=== PATIENT | female | born 1975 | race Two or more races ===

== ENCOUNTER 2024-10-11 13:46 | Emergency (ER) | payer MEDICAID, SELFPAY ==
[2024-10-11 13:48] VITALS: BMI 23.1
[2024-10-11 14:22] VITALS: BP 124/85; PULSE 99; RESP 18; TEMP 36.4; O2SAT 100
--- NOTE | 2024-10-11 14:35 | EDRME_ITS ---
Rapid Medical Screening Exam [facility] Arrival date/time: 10/11/24 13:46 This is a 49-year-old female that comes in with complaints of weakness. Reports that she is currently on her menstrual cycle. Patient is on day 4 of bleeding. Patient states that she feels like her hemoglobin or iron is low. Patient denies any other symptoms. Patient reports a history of iron being low. Patient states that the last time she had her menstrual cycle she does not know if the tampon stayed in there.. She does not know if she remove the last tampon. Patient does not think she pulled it out or it fell out. Chief Complaint: Shortness of Breath/Dyspnea Time Seen by Provider: 10/11/24 14:12 Vital signs: Vital Signs Temperature 97.6 F 10/11/24 14:22 Pulse Rate 99 10/11/24 14:22 Respiratory Rate 18 10/11/24 14:22 Blood Pressure 124/85 H 10/11/24 14:22 Pulse Oximetry (%) 100 10/11/24 14:22 Oxygen Delivery Method Room Air 10/11/24 14:22
--- NOTE | 2024-10-11 14:37 | XR_ITS ---
Examination: PA lateral chest 2 views Technique: Upright PA lateral chest 2 views Exam date and time: October 11, 2024 1446 hrs. Indications: Weakness shortness of breath today Findings: Normal heart size No pneumonia or pulmonary edema The osseous structures are intact Impression: No active disease
[2024-10-11 15:03] LABS: Collection Type, Urine Voided
[2024-10-11 15:09] LABS: Basophils % (Auto) 1 % (0-2.5); Eosinophils # (Auto) 0.1 Thou/mm3 (0.0-0.5); Eosinophils % (Auto) 2 % (0-10); Hematocrit 33.3 % (36.0-46.0); Hemoglobin 9.4 g/dL (12.0-16.0); Immature Granulocytes % (Auto) 1 % (0-0); Immature Granulocytes Auto 0.02 Thou/mm3 (0.00-0.00); Lymphocytes # (Auto) 1.6 Thou/mm3 (1.0-4.8); Lymphocytes % (Auto) 39 % (10-50); Mean Corpuscular HGB Conc 28.2 g/dl (31.0-37.0); Mean Corpuscular Volume 64 fL (80-100); Monocytes # (Auto) 0.5 Thou/mm3 (0.0-0.8); Monocytes % (Auto) 12 % (0-12); Neutrophils # (Auto) 1.9 Thou/mm3 (1.8-7.7); Neutrophils % (Auto) 46 % (37-80); Nucleated Red Blood Cell % 0 /100 WBC (0); Platelet Count 466 Thou/mm3 (140-440); RDW Standard Deviation 43.8 fL (36.4-46.3); Red Blood Count 5.22 Miln/mm3 (4.00-5.20); White Blood Count 4.1 Thou/mm3 (3.6-11.0)
[2024-10-11 15:17] LABS: Bacteria,Urine 1+; Bilirubin,Urine Negative (Negative); Blood,Urine 2+ (Negative); Clarity,Urine Turbid (Clear/Hazy); Color,Urine Yellow (Lt Yel-Yel); Culture Indicated,Urine Contaminated; Glucose, Urine Negative (Negative); Hyaline Casts,Urine < 1 /hpf (0-1); Ketones,Urine Negative (Negative); Leukocyte Esterase,Urine Positive (Negative); Nitrite,Urine Positive (Negative); Protein,Urine 1+ (Neg - Trace); RBC,Urine 12 /hpf (0-3); Specific Gravity,Urine 1.021 (1.001-1.035); Squamous Epithelial Cell,Urine 11 /hpf (0-5); Urobilinogen,Urine Negative mg/dL (0.0-1.0); WBC,Urine 111 /hpf (0-5)
[2024-10-11 15:23] LABS: Alanine Aminotransferase 23 U/L (10-49); Albumin, Serum 4.5 gm/dL (3.5-5.0); Albumin/Globulin Ratio 1.3 (1.2-2.2); Alkaline Phosphatase 109 U/L (46-116); Anion Gap 8 (7-16); Aspartate Amino Transferase 26 U/L (0-34); BUN/Creatinine Ratio 15 Ratio (12-20); Bilirubin,Total 0.3 mg/dL (0.3-1.2); Blood Urea Nitrogen 12 mg/dL (9-23); Calcium 8.8 mg/dL (8.3-10.6); Calcium (Corrected) 8.8 mg/dL (8.5-10.1); Carbon Dioxide 25.1 mMol/L (20.0-31.0); Chloride 105 mMol/L (98-107); Creatinine (Component) 0.8 mg/dL (0.6-1.3); Estimated Creatinine Clearance 75.1 mL/min (>60); Globulin 3.5 gm/dL (2.3-3.5); Glucose 129 mg/dL (74-106); Osmolality,Calculated 277 (275-295); Potassium 3.4 mMol/L (3.4-5.1); Sodium 138 mMol/L (136-145); eGFR > 60 See Note
--- NOTE | 2024-10-11 15:32 | PD.EDDIZZY ---
ED Dizzyness RME/HPI General Chief Complaint: Shortness of Breath/Dyspnea Stated Complaint: dizziness, sob, Headache Time Seen by Provider: 10/11/24 14:12 Arrival date/time: 10/11/24 13:46 RME / HPI RME / HPI Narrative: 10/11/24 13:46 This is a 49-year-old female that comes in with complaints of weakness. Reports that she is currently on her menstrual cycle. Patient is on day 4 of bleeding. Patient states that she feels like her hemoglobin or iron is low. Patient denies any other symptoms. Patient reports a history of iron being low. Patient states that the last time she had her menstrual cycle she does not know if the tampon stayed in there.. She does not know if she remove the last tampon. Patient does not think she pulled it out or it fell out. DR. HO MAIN ED EVALUATION: 49 year old female presents to the Emergency Department with complaints of dizziness and generalized weakness. She states she has not been drinking a lot of fluids. She also has history of anemia and supposed to be taking iron but has not been complaint; she states she almost needed a blood transfusion but never had one yet. Associated symptoms include nausea. No vomiting, diarrhea, or constipation. Patient also complains of a cough, mild headache, and body aches. No fevers, chills, or sweating. Patient smokes, but no alcohol or drugs. Related Data Previous Rx's ?Medication ?Instructions ?Recorded acetaminophen 500 mg tablet 500 mg PO QID PRN pain #14 tabs 04/25/18 ferrous sulfate 325 mg (65 mg 325 mg PO QDAY #30 tabs 04/26/21 iron) tablet Allergies Allergy/AdvReac Type Severity Reaction Status Date / Time No Known Allergies Allergy Verified 04/26/21 18:03 Review of Systems Review of Systems Systems Reviewed: All systems reviewed, normal except as documented Narrative Review of Systems: GEN: No fever, no chills, no weight loss, + body aches EYES: No discharge, no visual changes, no pain HEENT: No ear pain, no congestion, no sore throat PULM: No shortness of breath, + cough CV: No chest pain, no dyspnea on exertion, no palpitations GI: + nausea, no vomiting, no diarrhea, no pain, no constipation : No frequency, no urgency and no dysuria MUSC/SKEL: No joint pain, no back pain SKIN: No rash PSYCH: No hallucinations, no depression HEME/LYMPH: No easy bleeding or bruising tendencies NEURO: + generalized weakness, + dizziness, + mild headache Past Medical History Past Medical History HEMATOLOGIC: Positive Anemia Social History SMOKING STATUS: Never smoker SUBSTANCE USE: does not use ALCOHOL: Never ED Exam Narrative Physical exam: GENERAL APPEARANCE: alert and oriented x 4, well-developed, well-nourished, no acute distress VITALS: All vitals were reviewed and the pulse ox is 100% on room air, which is normal according to my interpretation. HEENT: Normocephalic, atraumatic; pupils equal, round, reactive to light; EOMI; mucous membranes pink, dry; oropharynx clear NECK: Supple LUNGS: CTABL; no wheezes, no rales, no rhonchi HEART: Regular rate, regular rhythm; normal S1, S2; no murmurs ABDOMEN: non distended; normal BS; soft, no tenderness, no guarding, no rebound; no masses, no organomegaly, no hernia BACK: no CVA tenderness EXTREMITIES: atraumatic; no edema NEUROLOGIC: awake; alert and oriented x4; cranial nerves II-XII grossly intact; no focal sensory or motor deficits PSYCHIATRIC: appropriate mood and affect SKIN: warm, dry, normal color; no rashes Course Quality Measures none Orders Category Date Time Status Bedside COVID-19 Antigen Test NOW Care 10/11/24 16:07 Active Bedside Influenza A&B Antigen Test NOW Care 10/11/24 16:07 Completed Orthostatic Vitals NOW Care 10/11/24 16:07 Active XR chest 2V Stat Exams 10/11/24 14:37 Completed Alcohol, Blood Medical Stat Lab 10/11/24 14:48 Completed CBC Stat Lab 10/11/24 14:48 Completed Comprehensive Metabolic Panel Stat Lab 10/11/24 14:48 Completed Drug Screen,Urine Stat Lab 10/11/24 16:08 Ordered Urinalysis, C/S if Indicated Stat Lab 10/11/24 14:41 Completed Vital Signs Vital signs: Vital Signs Temperature 97.6 F 10/11/24 14:22 Pulse Rate 99 10/11/24 14:22 Respiratory Rate 18 10/11/24 14:22 Blood Pressure 124/85 H 10/11/24 14:22 Pulse Oximetry (%) 100 10/11/24 14:22 Oxygen Delivery Method Room Air 10/11/24 14:22 Dizziness MDM Narrative MDM Narrative:: I, Tricia Carreon, am scribing for and in the presence of Dr. Ho. Patient data External records reviewed:: [facility] previous records (Reviewed last ED visit dated 04/26/21, discharged with the following: Cystitis) Clinical information provided by:: patient Social determinants that could affect healthcare access:: none Patient has the following chronic illnesses:: History of anemia and supposed to be taking iron but has not been complaint. How is presenting disease/condition affected by chronic disease/condition?: exacerbated by Evaluation data The following diagnostics were reviewed and interpreted by me:: lab results and radiology exam(s) Lab and/or radiology exams considered but not ordered:: none Interpretation Summary: Procedure(s): XR chest 2V Accession Number(s): [id number] cc: Derrell Stewart MD; NO PRIMARY/FAMILY,PHYSICIAN; Irene Alvarenga NP~ Examination: PA lateral chest 2 views Technique: Upright PA lateral chest 2 views Exam date and time: October 11, 2024 1446 hrs. Indications: Weakness shortness of breath today Findings: Normal heart size No pneumonia or pulmonary edema The osseous structures are intact Impression: No active disease Dictated By: Derrell Stewart MD Medications / Prescriptions Medications or Prescriptions considered but not ordered:: none Medication administrations:: see above if any Consultations Consultation(s) initiated? (list below): No Diagnosis Dizziness Differential Diagnosis: transient cerebral ischemia and other (anemia, dehydration, electrolyte imbalance) Most likely diagnosis given after review of the tests above:: Dizziness URI Anemia Admission Indicated Admission indicated?: not indicated Admission Request Was there a request for admission?: No Disposition Plan Disposition Plan: Discharge Discharge Attestation Discharge Attestation: The patient and all family members were given an opportunity to ask questions and understood the discharge instructions. Discharge instructions specifically effects, indications for sooner follow up or return to the emergency department, and the expected course of current diagnosis. Patient condition: Stable Discharge Plan Plan Patient Disposition: HOME (Self Care) Prescriptions/Referrals Prescriptions/Med Rec: No Action acetaminophen 500 mg tablet 500 mg PO QID PRN (Reason: pain) Qty: 14 0RF ferrous sulfate 325 mg (65 mg iron) tablet 325 mg PO QDAY Qty: 30 0RF Referrals: No Primary/Family,Physician [Primary Care Provider] - In 1 week Problem List Clinical Impression: Dizziness, URI (upper respiratory infection), Anemia Patient/Caregiver Discharge Instructions Education Materials: ED Dizziness, Uncertain Cause Print Language: Faroese Stand Alone Forms: Tammy Award Info., Patient Portal Info Letter
[2024-10-11 16:16] VITALS: BP 112/80; BP 117/80; BP 122/63; BP 123/81; PULSE 86; PULSE 87; PULSE 90; PULSE 96; RESP 16; TEMP 36.7; O2SAT 100
[2024-10-11 16:51] LABS: Alcohol, Blood Medical 11.6 mg/dL (0-10.0)
== END 2024-10-11 17:12 | disposition home or self-care (01) ==
PROVIDERS: Nurse Practitioner Family; Emergency Provider Emergency Medicine
DX: J06.9 Acute upper respiratory infection, unspecified (principal); D64.9 Anemia, unspecified
CPT/HCPCS: 36415; 71046; 80053; 80307; 80320; 81001; 85025; 87400; 87811; 99283; G0480